=== PATIENT | male | born 1990 | race African-American/Black ===

== ENCOUNTER 2017-06-04 22:51 | Emergency (ER) | payer MEDICAID ==
[~2017-06-04] VITALS: Ht 167.6 cm; Wt 68.2 kg
[2017-06-04] MEDS ORDERED: AMOX500C2 PO (22:55)
[2017-06-04] MEDS ORDERED: NAPR-58 PO (22:55)
[2017-06-05 01:23] VITALS: BP 127/80
[2017-06-05] MEDS ORDERED: IBUPROFEN 600 MG TABLET PO ONE (01:45)
== END 2017-06-05 01:52 | disposition home or self-care (01) ==
LOC: EMS 22:53
DX: S83.92XA Sprain of unspecified site of left knee, initial encounter (principal); I10 Essential (primary) hypertension; J45.909 Unspecified asthma, uncomplicated; F17.210 Nicotine dependence, cigarettes, uncomplicated; W22.8XXA Striking against or struck by other objects, initial encounter; Y93.75 Activity, martial arts; Y92.89 Other specified places as the place of occurrence of the external cause; Y99.8 Other external cause status
CPT/HCPCS: 99284; 99406